=== PATIENT | female | born 1995 | race Two or more races ===

== ENCOUNTER 2023-01-06 12:55 | Emergency (ER) | payer OTHER ==
[~2023-01-06] VITALS: Ht 154.9 cm; Wt 74.8 kg
[2023-01-06 15:34] LABS: HEMATOCRIT 44.5 % (36.0-45.00); HEMOGLOBIN 14.7 g/dL (12.0-15.00); MEAN CORPUSCULAR HEMOGLOBIN 29.4 pg (27.00-32.0); MEAN CORPUSCULAR HGB CONC 33.1 g/dl (32.0-36.0); PLATELET COUNT 230 K/uL (150-450); RED BLOOD COUNT 5.01 M/uL (4.00-6.00); RED CELL DISTRIBUTION WIDTH 13.2 % (11.5-14.5)
[2023-01-06 15:35] LABS: PH,URINE 5.5 (5.0-8.0); URINE APPEARANCE Clear; URINE BILIRRUBIN Negative (NEGATIVE); URINE BLOOD Moderate; URINE COLOR Yellow; URINE GLUCOSE Negative (NEGATIVE); URINE LEUKOCYTE Trace; URINE NITRATE Negative; URINE PROTEIN Trace (NEGATIVE)
[2023-01-06 15:38] LABS: URINE BACTERIA 176.3 uL (0.0-1933); URINE RBC 306.4 uL (0.0-20.8); URINE WBC 16.8 uL (0.0-23.2)
[2023-01-06] MEDS ORDERED: OSEL75CA PO (17:16)
[2023-01-06] MEDS ORDERED: ZYNCOF 400-201 EACH PO (17:16)
== END 2023-01-06 17:25 | disposition home or self-care (01) ==
LOC: ER 12:55
PROVIDERS: Nurse Practitioner Family
DX: J10.1 Influenza due to other identified influenza virus with other respiratory manifestations (principal); Z20.822 Contact with and (suspected) exposure to COVID-19